=== PATIENT | female | born 1960 ===

== ENCOUNTER 2016-12-22 19:01 | Emergency (ER) | payer OTHER ==
[2016-12-22 19:23] VITALS: BP 140/79; PULSE 71; RESP 18; TEMP 98; O2SAT 99
[2016-12-22 20:16] LABS: BASO % 0.6 % (0.0-2.0); EOS # 0.1 K/uL (0.0-0.7); EOS % 1.7 % (0.0-4.0); HEMATOCRIT 38.5 % (34.0-47.0); LYMPH # 1.9 K/uL (1.0-4.3); MEAN CELL VOLUME 86.5 fl (81.0-99.0); MEAN CORPUSCULAR HEMOGLOBIN 28.5 pg (27.0-31.0); MEAN PLATELET VOLUME 8.8 fl (7.2-11.7); MONO # 0.5 K/uL (0.0-0.8); MONO % 7.6 % (0.0-10.0); NEUT # 3.6 K/uL (1.8-7.0); NEUT % 59.1 % (50.0-75.0); RED CELL DISTRIBUTION WIDTH 14.4 % (11.5-14.5); WHITE BLOOD COUNT 6.2 K/uL (4.8-10.8)
[2016-12-22 20:26] LABS: ALB/GLOB RATIO 1.3 (1.0-2.1); ALKALINE PHOSPHATASE 72 U/L (38-126); ALT/SGPT 41 U/L (9-52); AST/SGOT 21 U/L (14-36); BILIRUBIN,TOTAL 0.7 mg/dl (0.2-1.3); BLOOD UREA NITROGEN 14 mg/dl (7-17); CARBON DIOXIDE 25 mmol/L (22-30); CHLORIDE 107 mmol/L (98-107); GFR AFRICAN-AMERICAN > 60; GLUCOSE,RANDOM 128 mg/dL (65-105); POTASSIUM 3.3 MMOL/L (3.6-5.0); SODIUM 141 mmol/l (132-148); TOTAL PROTEIN 6.8 G/DL (6.3-8.2)
[2016-12-22 20:30] LABS: PARTIAL THROMBOPLASTIN TIME 26.8 Seconds (25.6-37.1)
--- NOTE | 2016-12-22 21:07 | ED PDOC ---
HPI: Female Pain Time Seen by Provider: 12/22/16 19:24 Chief Complaint (Nursing): Female Genitourinary Chief Complaint (Provider): Abdominal pain and vaginal bleeding History Per: Patient History/Exam Limitations: no limitations Onset/Duration Of Symptoms: Days (10) Current Symptoms Are (Timing): Still Present Additional Complaint(s): The patient is a 55yo female, post-menopausal for 3 years, presents to the ED for evaluation of heavy vaginal bleeding present for the past 10 days. Patient reports she usually has intermittent spotting for the past 3 years. She states approximately 1.5 months ago, she received an injection for a cervical lesion and at that time, patient was informed she may have some bleeding and was informed to present to the ED if the bleeding was heavy. Patient also reports some lower abdominal pain, radiating to her back with associated generalized weakness. She denies any fever, nausea, vomiting, diarrhea, chest pain or shortness of breath. Patient offers no additional medical complaints. Past Medical History Reviewed: Historical Data, Nursing Documentation, Vital Signs Vital Signs: Last Vital Signs Temp 98.0 F 12/22/16 19:20 Pulse 71 12/22/16 19:20 Resp 18 12/22/16 19:20 BP 140/79 12/22/16 19:20 Pulse Ox 99 12/22/16 19:20 - Medical History PMH: No Chronic Diseases - Surgical History Surgical History: (4 times) - Family History Family History: States: No Known Family Hx - Social History Current smoker - smoking cessation education provided: No Alcohol: None Drugs: Denies - Home Medications Home Medications: Ambulatory Orders Medication Instructions Recorded Ciprofloxacin [Cipro] 500 mg PO Q12 #14 tab 12/22/16 - Allergies Allergies/Adverse Reactions: Allergies Allergy/AdvReac Type Severity Reaction Status Date / Time No Known Allergies Allergy Verified 12/22/16 19:19 Review of Systems ROS Statement: Except As Marked, All Systems Reviewed And Found Negative Constitutional: Negative for: Fever Gastrointestinal: Positive for: Abdominal Pain. Negative for: Nausea, Vomiting , Diarrhea Genitourinary Female: Positive for: Vaginal Bleeding Musculoskeletal: Positive for: Back Pain Physical Exam - Reviewed Nursing Documentation Reviewed: Yes Vital Signs Reviewed: Yes - Physical Exam Appears: Positive for: Well, Non-toxic, No Acute Distress Head Exam: Positive for: ATRAUMATIC, NORMAL INSPECTION, NORMOCEPHALIC Skin: Positive for: Normal Color, Warm, DRY Eye Exam: Positive for: Normal appearance Neck: Positive for: Normal, Supple Cardiovascular/Chest: Positive for: Regular Rate, Rhythm Respiratory: Positive for: Normal Breath Sounds. Negative for: Respiratory Distress Gastrointestinal/Abdominal: Positive for: Normal Exam, Soft. Negative for: Tenderness Back: Positive for: Normal Inspection Extremity: Positive for: Normal ROM. Negative for: Deformity, Swelling Neurologic/Psych: Positive for: Alert, Oriented. Negative for: Motor/Sensory Deficits - Laboratory Results Result Diagrams: 12/22/16 20:13 12/22/16 20:13 - ECG O2 Sat by Pulse Oximetry: 99 (RA) Pulse Ox Interpretation: Normal Medical Decision Making Medical Decision Making: Time: 1929 Impression: 51yo female, post-menopausal with vaginal bleeding Plan: -- Labs -- US Transvaginal Reassess Time: 2218 US Abdomen IMPRESSION: Fibroid uterus. Despite prolonged interrogation, the left ovary was not visualized. Normal right ovary. Time: 2229 Labs reviewed and show no clinically significant abnormalities. Patient's urine results indicate UTI. Patient given initial dose of Cippro in ED and given Cippro prescription. Finding discussed with patient by provider and patient reports she will follow up with her PCP at [facility]. Patient stable for discharge home. Diagnosis: Dysfunctional uterine bleeding, uterine fibroids, UTI Scribe Attestation: Documented by Rosa Bolivar acting as a scribe for Colton Leavitt MD. Provider Attestation: All medical record entries made by the Scribe were at my direction and personally dictated by me. I have reviewed the chart and agree that the record accurately reflects my personal performance of the history, physical exam, medical decision making, and the department course for this patient. I have also personally directed, reviewed, and agree with the discharge instructions and disposition. Disposition - Clinical Impression Clinical Impression: Dysfunctional uterine bleeding, Urinary tract infection, Fibroid uterus - Disposition Disposition: Routine/Home Disposition Time: 22:30 Condition: STABLE Prescriptions: Ciprofloxacin [Cipro] 500 mg PO Q12 #14 tab Instructions: Dysfunctional Uterine Bleeding (ED), Uterine Fibroids (ED), Urinary Tract Infection in Women (ED) Forms: [employer] (British) Print Language: LATVIAN
[2016-12-22 21:51] LABS: RBC URINE 2532 /hpf (0-3); URINE BACTERIA OCC (<OCC); URINE BILIRUBIN NEGATIVE (NEGATIVE); URINE BLOOD LARGE (NEGATIVE); URINE COLOR YELLOW (YELLOW); URINE GLUCOSE (UA) NEG (Normal); URINE KETONE NEGATIVE (NEGATIVE); URINE LEUKOCYTE ESTERASE MOD Leu/uL (Negative); URINE PROTEIN 100 mg/dL (NEGATIVE); WBC URINE 125 /hpf (0-5)
--- NOTE | 2016-12-22 22:20 | US ---
EXAM: US Pelvis, Transvaginal CLINICAL HISTORY: 55 years old, female; Signs and symptoms; Menstruation abnormalities; Irregular menstruation; Additional info: Dub TECHNIQUE: Real-time transvaginal pelvic ultrasound (complete) with image documentation. Transvaginal imaging was used for better evaluation of the endometrium and adnexa. COMPARISON: No relevant prior studies available. FINDINGS: Uterus/cervix: The uterus is enlarged measuring 11.4 x 7.3 x 8.1 cm. Multiple fibroids are detected. The largest is within the posterior fundus, to the left of midline measuring 4.7 cm in greatest dimension. Normal endometrial stripe thickness, measuring 9 mm. Trace free fluid is identified within the endocervical canal. Right ovary: Unremarkable in echogenicity and size measuring 2.3 x 1.6 x 2.3 cm. No mass. Normal blood flow. Left ovary: Despite prolonged interrogation, the left ovary was not visualized. Free fluid: No free fluid. IMPRESSION: Fibroid uterus. Despite prolonged interrogation, the left ovary was not visualized. Normal right ovary.
== END 2016-12-22 23:05 | disposition home or self-care (01) ==
LOC: H.ER 19:01
DX: N93.8 Other specified abnormal uterine and vaginal bleeding (principal); N39.0 Urinary tract infection, site not specified; D25.9 Leiomyoma of uterus, unspecified; N92.6 Irregular menstruation, unspecified

== ENCOUNTER 2018-04-06 21:08 | Emergency (ER) | payer SELFPAY ==
[2018-04-06] MEDS ORDERED: Sodium Chloride 0.9% 1,000 ML IV STA (22:06)
--- NOTE | 2018-04-06 22:10 | ED PDOC ---
HPI: Headache Time Seen by Provider: 04/06/18 21:45 Chief Complaint (Nursing): Dizziness/Lightheaded Chief Complaint (Provider): headache, dizziness History Per: Patient History/Exam Limitations: no limitations Onset/Duration Of Symptoms: Days (1 week), Waxing/Waning Current Symptoms Are (Timing): Still Present Additional Complaint(s): 57 y/o female presents for evaluation of intermittent headache with associated dizziness x 1 week. Patient states both come together, states pain is in the back of head, and dizziness describes as "spinning". Denies fever, nausea /vomiting, vision changes, extremity numbness/weakness, chest pain, shortness of breath, palpitations, abdominal pain. No medication taken for pain thus far. Past Medical History Reviewed: Historical Data, Nursing Documentation, Vital Signs Vital Signs: Last Vital Signs Temp 98.0 F 04/06/18 21:23 Pulse 81 04/06/18 21:23 Resp 18 04/06/18 21:23 BP 133/85 04/06/18 21:23 Pulse Ox 96 04/06/18 21:23 - Medical History PMH: No Chronic Diseases - Surgical History Surgical History: Cholecystectomy, (4 times) - Family History Family History: States: No Known Family Hx - Living Arrangements Living Arrangements: With Family - Home Medications Home Medications: Ambulatory Orders Medication Instructions Recorded Ciprofloxacin [Cipro] 500 mg PO Q12 #14 tab 12/22/16 Meclizine [Antivert] 12.5 mg PO TID PRN #21 tab 04/06/18 Naproxen [Naprosyn] 500 mg PO Q12 PRN #20 tablet 04/06/18 - Allergies Allergies/Adverse Reactions: Allergies Allergy/AdvReac Type Severity Reaction Status Date / Time No Known Allergies Allergy Verified 04/06/18 21:23 Review of Systems ROS Statement: Except As Marked, All Systems Reviewed And Found Negative Neurological: Positive for: Headache, Dizziness Physical Exam - Reviewed Nursing Documentation Reviewed: Yes Vital Signs Reviewed: Yes - Physical Exam Appears: Positive for: Well, Non-toxic, No Acute Distress Head Exam: Positive for: ATRAUMATIC, NORMAL INSPECTION, NORMOCEPHALIC Skin: Positive for: Normal Color Eye Exam: Positive for: EOMI, PERRL, Nystagmus (horizontal bilaterally) ENT: Positive for: Normal ENT Inspection Cardiovascular/Chest: Positive for: Regular Rate, Rhythm Respiratory: Positive for: Normal Breath Sounds Gastrointestinal/Abdominal: Positive for: Normal Exam Back: Positive for: Normal Inspection Extremity: Positive for: Normal ROM Neurologic/Psych: Positive for: Alert, Oriented (x3). Negative for: Motor /Sensory Deficits - Laboratory Results Result Diagrams: 04/06/18 22:21 04/06/18 22:21 - ECG ECG: Positive for: Viewed By Me (reviewed by ED attending) ECG Rhythm: Positive for: Sinus Rhythm O2 Sat by Pulse Oximetry: 96 Pulse Ox Interpretation: Normal - Progress ED Course And Treament: -cbc -cmp -ekg -CT head -PO tylenol -PO meclizine EXAM: CT Head without Intravenous Contrast. CLINICAL HISTORY: Headache dizziness x 1 week TECHNIQUE: Axial computed tomography images of the head/brain without intravenous contrast. 828.85 mGy-cm COMPARISON: None provided. FINDINGS: BRAIN No acute intraparenchymal hemorrhage. No mass lesion. No CT evidence for acute territorial infarct. No midline shift or extra-axial collections. VENTRICLES: No hydrocephalus. ORBITS: The orbits are unremarkable. SINUSES AND MASTOIDS: The paranasal sinuses and mastoid air cells are clear. BONES: No fracture. SOFT TISSUES: Unremarkable. IMPRESSION: No acute intracranial abnormality. On re-eval, patient resting comfortably; states she is feeling better Patient educated on findings, discharged with rx Meclizine, Naproxen Advised follow up PMD within 2-3 days Return precautions given Patient demonstrates full understanding of discharge instructions Patient requires no further intervention in the ED and is stable for discharge at this time Disposition - Clinical Impression Clinical Impression: Headache, Dizziness - Patient ED Disposition Is Patient to be Admitted: No Counseled Patient/Family Regarding: Studies Performed, Diagnosis, Need For Followup, Rx Given - Disposition Disposition: Routine/Home Disposition Time: 23:42 Condition: IMPROVED Prescriptions: Meclizine [Antivert] 12.5 mg PO TID PRN #21 tab PRN Reason: Dizziness Naproxen [Naprosyn] 500 mg PO Q12 PRN #20 tablet PRN Reason: Pain, Moderate (4-7) Instructions: Vertigo (a Type of Dizziness), Headache, Adult Forms: [employer] (Bengali) Print Language: ICELANDIC
[2018-04-06 22:30] LABS: BASO # 0.1 K/uL (0.0-0.2); BASO % 0.6 % (0.0-2.0); EOS % 0.6 % (0.0-4.0); HEMOGLOBIN 14.1 g/dL (12.0-16.0); LYMPH # 2.1 K/uL (1.0-4.3); LYMPH % 25.2 % (20.0-40.0); MEAN CELL VOLUME 84.9 fl (81.0-99.0); MEAN PLATELET VOLUME 8.6 fl (7.2-11.7); MONO # 0.8 K/uL (0.0-0.8); MONO % 9.7 % (0.0-10.0); NEUT # 5.2 K/uL (1.8-7.0); NEUT % 63.9 % (50.0-75.0); RBC 5.04 Mil/uL (3.80-5.20); RED CELL DISTRIBUTION WIDTH 14.4 % (11.5-14.5); WHITE BLOOD COUNT 8.1 K/uL (4.8-10.8)
[2018-04-06 22:38] LABS: ALB/GLOB RATIO 1.1 (1.0-2.1); ALBUMIN 3.9 g/dL (3.5-5.0); ALT/SGPT 36 U/L (9-52); AST/SGOT 24 U/L (14-36); BLOOD UREA NITROGEN 19 mg/dl (7-17); CALCIUM 9.6 mg/dL (8.4-10.2); GFR NON-AFRICAN AMERICAN > 60
[2018-04-07 00:17] VITALS: BP 129/84; PULSE 74; RESP 16; O2SAT 99
[2018-04-07 04:22] VITALS: TEMP 98.2
--- NOTE | 2018-04-07 06:45 | CARD ---
APPROVED REPORT Date of service: 04/06/2018 EKG Measurement Heart [id number] <Conclusion> Normal sinus rhythm Normal ECG
--- NOTE | 2018-04-07 08:22 | CT ---
Date of service: 04/06/2018 PROCEDURE: CT HEAD WITHOUT CONTRAST. HISTORY: headache, dizziness x 1 week COMPARISON: None available. TECHNIQUE: Axial computed tomography images were obtained through the head/brain without intravenous contrast. Radiation dose: Total exam DLP = 828.85 mGy-cm. This CT exam was performed using one or more of the following dose reduction techniques: Automated exposure control, adjustment of the mA and/or kV according to patient size, and/or use of iterative reconstruction technique. FINDINGS: HEMORRHAGE: No intracranial hemorrhage. BRAIN: No mass effect or edema. No atrophy or chronic microvascular ischemic changes. VENTRICLES: Unremarkable. No hydrocephalus. CALVARIUM: Unremarkable. PARANASAL SINUSES: Unremarkable as visualized. No significant inflammatory changes. MASTOID AIR CELLS: Unremarkable as visualized. No inflammatory changes. OTHER FINDINGS: None. IMPRESSION: Normal CT of the Head. Concordant results (preliminary interpretation) provided by [facility].
== END 2018-04-07 00:05 | disposition home or self-care (01) ==
LOC: H.ER 21:08
DX: R51 Headache (principal); R42 Dizziness and giddiness
CPT/HCPCS: 70450; 80053; 82948; 85025; 93005; 99285; J7030